=== PATIENT | female | born 1990 | race Two or more races ===

== ENCOUNTER 2022-09-23 07:25 | Day surgery (SDC) | payer OTHER | END 2022-09-23 14:50 | disposition home or self-care (01) | LOC: CIR.AMB 07:25 | PROVIDERS: ATTEND Obstetrics & Gynecology | DX: Z30.2 Encounter for sterilization (principal); Z64.1 Problems related to multiparity; Z20.822 Contact with and (suspected) exposure to COVID-19 ==